=== PATIENT | male | born 1940 | race Caucasian/White ===

== ENCOUNTER 2024-08-17 14:59 | Inpatient (IN) | payer MEDICARE, OTHER ==
[2024-08-17] MEDS: HEPARIN SOD,PORK IN 0.45% NACL 25,000 UNIT in 0.45% NACL 1 250ML.BAG IV SCH (15:33)
--- NOTE | 2024-08-17 15:55 | ED ---
General Adult HPI - General Chief complaint: Chest Pain Stated complaint: chest pain Time Seen by Provider: 08/17/24 15:01 Source: patient Mode of arrival: EMS Limitations: no limitations - History of Present Illness Initial comments: Dictation was produced using [employer] dictation software. please excuse any grammatical, word or spelling errors. Chief Complaint: 83-year-old male with no significant past medical history presents to the ER for chest pain History of Present Illness: Patient is 83-year-old male denies any coronary or cardiac history. Initially presented to outside emergency department for chest pain suspicious for ACS. Transferring facility perform extensive workup including troponin, x-ray EKG. Unremarkable. Patient however did have some bradycardic episodes where his heart rate will drop into the 30s. Patient has been having chronic syncopal issues that was not allegedly secondary to ear issues. Patient denies any pain at the bedside. The ROS documented in this emergency department record has been reviewed and confirmed by me. Those systems with pertinent positive or negative responses have been documented in the HPI. All other systems are other negative and/or noncontributory. - Related Data Home Medications Medication Instructions Recorded Confirmed Lansoprazole [Prevacid] 30 mg PO BID 05/23/16 05/23/16 Levothyroxine Sodium [Synthroid] 25 mcg PO QAM 05/23/16 05/23/16 Melatonin 5 mg PO HS PRN 05/23/16 05/23/16 clonazePAM [KlonoPIN] 1 mg PO HS 05/23/16 05/23/16 hydrOXYzine HCL [Atarax] 25 mg PO HS 05/23/16 05/23/16 Allergies Allergy/AdvReac Type Severity Reaction Status Date / Time amoxicillin trihydrate Allergy Diarrhea Verified 05/23/16 15:17 [From Augmentin] metoclopramide HCl Allergy AGITATION,A Verified 05/23/16 15:17 [From Reglan] NXIETY potassium clavulanate Allergy Diarrhea Verified 05/23/16 15:17 [From Augmentin] Review of Systems ROS Statement: Those systems with pertinent positive or pertinent negative responses have been documented in the HPI. ROS Other: All systems not noted in ROS Statement are negative. Past Medical History Past Medical History: GERD/Reflux Additional Past Medical History / Comment(s): VERTIGO. RESTLESS LEG. TESTED POSITIVE FOR HEPATITIS MANY YEARS AGO, NOT SURE WHAT TYPE. History of Any Multi-Drug Resistant Organisms: None Reported Past Surgical History: Back Surgery Additional Past Surgical History / Comment(s): FUSION OF L5-S1. LEFT PART KNEE. PAIN PROCEDURES AT OA. Past Anesthesia/Blood Transfusion Reactions: Motion Sickness, Postoperative Nausea & Vomiting (PONV) Past Psychological History: No Psychological Hx Reported Past Alcohol Use History: Rare Past Drug Use History: None Reported General Exam - General Exam Comments Initial Comments: PHYSICAL EXAM: General Impression: Alert and oriented x3, not in acute distress HEENT: Normocephalic atraumatic, extra-ocular movements intact, pupils equal and reactive to light bilaterally, mucous membranes moist. Cardiovascular: Heart regular rate and rhythm Chest: Able to complete full sentences, no retractions, no tachypnea Abdomen: abdomen soft, non-tender, non-distended, no organomegaly Musculoskeletal: Pulses present and equal in all extremities, no peripheral edema Motor: no focal deficits noted Neurological: CN II-XII grossly intact, no focal motor or sensory deficits noted Skin: Intact with no visualized rashes Psych: Normal affect and mood Limitations: no limitations Course Vital Signs 08/17/24 15:00 Temperature 97.4 F L Pulse Rate 37 L Respiratory 16 Rate Blood Pressure 178/75 O2 Sat by Pulse 100 Oximetry EKG Findings - EKG Comments: EKG Findings:: My EKG interpretation: Ventricular rate 36, sinus bradycardia,. 09/23/2018, QRS 87, QTc 378. No OK prolongation, no QTC prolongation, no ST or T- wave changes noted. No evidence of heart block. Overall this EKG is nonspecific Medical Decision Making - Medical Decision Making Was pt. sent in by a medical professional or institution (, PA, DEPUTY SHERIFF CHIEF, urgent care, hospital, or half-way...) When possible be specific @ -Outside emergency room Did you speak to anyone other than the patient for history (EMS, parent, family, police, friend...)? What history was obtained from this source @ -Spoke with transferring physician Did you review nursing and triage notes (agree or disagree)? Why? @ -I reviewed and agree with nursing and triage notes Were old charts reviewed (outside hosp., previous admission, EMS record, old EKG, old radiological studies, urgent care reports/EKG's, half-way records)? Report findings @ -Transferring documentations reviewed Differential Diagnosis (chest pain, altered mental status, abdominal pain women, abdominal pain men, vaginal bleeding, musculoskeletal, weakness, fever, dyspnea, syncope, headache, dizziness, GI bleed, back pain, seizure, CVA, palpatations, mental health)? @ -Differential Chest Pain: Stable Angina, Unstable Angina, STEMI, NSTEMI Aortic Dissection, Pneumothorax, Musculoskeletal, Esophageal Spasm GERD, Cholecystitis, Pancreatitis, Zoster, this is not meant to be an all-inclusive list. EKG interpreted by me (3pts min.). @ -See above X-rays interpreted by me (1pt min.). @ -None done CT interpreted by me (1pt min.). @ -None done U/S interpreted by me (1pt. min.). @ -None done What testing was considered but not performed or refused? (CT, X-rays, U/S, labs)? Why? @ -None What meds were considered but not given or refused? Why? @ -None Was smoking cessation discussed for >3mins.? @ -No Were there social determinants of health that impacted care today? How? (Homelessness, low income, unemployed, alcoholism, drug addiction, transportation, low edu. Level, literacy, decrease access to med. care, group home, rehab)? @ -No Was there de-escalation of care discussed even if they declined (Discuss DNR or withdrawal of care, Hospice)? DNR status @ -No What co-morbidities impacted this encounter? (DM, HTN, Smoking, COPD, CAD, Cancer, CVA, ARF, Chemo, Hep., AIDS, mental health diagnosis, sleep apnea, morbid obesity)? @ -None Was patient admitted / discharged? Hospital course, mention meds given and route, prescriptions, significant lab abnormalities, going to OR and other pertinent info. @ -83-year-old male presents to the emergency department as a ACS transfer from outside hospital. Vital signs shows bradycardia. Patient pain-free at the bedside upon arrival. Patient will be admitted consultation cardiology. Did you discuss the management of the patient with other professionals (professionals i.e. , PA, DEPUTY SHERIFF CHIEF, lab, RT, psych nurse, executive secretary social welfare, soil science professor, teacher, precinct commanding officer, manager rn case)? Give summary @ -Case discussed with hospitalist for admission Was critical care preformed (if so, how long)? @ -No Undiagnosed new problem with uncertain prognosis? @ -No Drug Therapy requiring intensive monitoring for toxicity (Heparin, Nitro, Insulin, Cardizem)? @ -No Were any procedures done? @ -No Diagnosis/symptom? Acute, or Chronic, or Acute on Chronic? Uncomplicated (without systemic symptoms) or Complicated (systemic symptoms)? @ -Acute coronary syndrome, bradycardia Side effects of treatment? @ -No Exacerbation, Progression, or Severe Exacerbation? @ -No Poses a threat to life or bodily function? How? (Chest pain, [place], [place], pneumonia, PE, COPD, DKA, ARF, appy, cholecystitis, CVA, Diverticulitis, Homicidal, Suicidal, threat to staff... and all critical care pts) @ -yes - Lab Data Lab Results 08/17/24 Range/Units 15:20 Troponin I <0.012 (0.000-0.034) ng/mL Disposition Clinical Impression: ACS (acute coronary syndrome) Disposition: ADMITTED IP TO THIS [facility] Condition: Fair Referrals: Christa Cartagena MD [Primary Care Provider] - 1-2 days Decision Time: 15:55
[2024-08-17] MEDS ORDERED: NITROGLYCERIN SL TABS 0.4 MG TAB SUBLINGUAL PRN (16:15)
[2024-08-17] MEDS: ATROPINE SULFATE 0.1 MG/ML 10ML SYRINGE IV STA (16:45)
[2024-08-17] MEDS ORDERED: hydrOXYzine HCL 25 MG TAB PO PRN (18:15)
[2024-08-17] MEDS ORDERED: ARTIFICIAL TEARS-HYPROMELLOSE DROPS 15 ML BTL BOTH EYES PRN (18:15)
[2024-08-17 19:55] LABS: Basophils # (A) 0.1 k/uL (0-0.2); Basophils % (A) 1 %; Eosinophils # (A) 0.1 k/uL (0-0.7); Eosinophils % (A) 1 %; HCT 37.2 % (39.0-53.0); HGB 12.4 gm/dL (13.0-17.5); Lymphocytes # (A) 1.5 k/uL (1.0-4.8); Lymphocytes % (A) 33 %; MCH 33.5 pg (25.0-35.0); MCHC 33.5 g/dL (31.0-37.0); MCV 100.1 fL (80.0-100.0); Macrocytosis Slight; Mean Platelet Volume 7.3; Monocytes # (A) 0.2 k/uL (0-1.0); Monocytes % (A) 5 %; Neutrophils # (A) 2.6 k/uL (1.3-7.7); Neutrophils % (A) 58 %; Platelet Count 220 k/uL (150-450); RBC 3.71 m/uL (4.30-5.90); WBC 4.4 k/uL (3.8-10.6)
[2024-08-17 20:02] LABS: ALT 25 U/L (4-49); AST 32 U/L (17-59); African American GFR (CKD) >90 (>60 ml/min/1.73 sqM); Albumin 4.4 g/dL (3.5-5.0); Alkaline Phosphatase 79 U/L (38-126); Anion Gap 5 mmol/L; Blood Urea Nitrogen 12 mg/dL (9-20); Carbon Dioxide 26 mmol/L (22-30); Chloride 100 mmol/L (98-107); Glucose 145 mg/dL (74-99); Non-African American GFR(CKD) 82 (>60 ml/min/1.73 sqM); Sodium 131 mmol/L (137-145); Total Protein 7.1 g/dL (6.3-8.2)
[2024-08-17] MEDS: hydrOXYzine HCL 25 MG TAB PO SCH (21:33)
[2024-08-17] MEDS: clonazePAM 0.5 MG TAB PO SCH (21:34)
[2024-08-17] MEDS: MELATONIN 5 MG TABLET PO SCH (21:34)
[2024-08-17] MEDS: cycloSPORINE 0.05% OPHTH 0.4 ML DROPERETTE BOTH EYES SCH (21:35)
[2024-08-18] MEDS: HEPARIN SODIUM 1,000 UN/ML (10ML VL) IV PRN (00:11)
[2024-08-18] MEDS: LEVOTHYROXINE 25 MCG TAB PO SCH (06:13)
[2024-08-18] MEDS: PANTOPRAZOLE 40 MG TABLET PO SCH (06:13)
[2024-08-18] MEDS ORDERED: ASPIRIN 325 MG TAB PO SCH (09:00)
[2024-08-18] MEDS: ASPIRIN 81 MG PO SCH (11:53)
--- NOTE | 2024-08-18 12:58 | P.CRDCN ---
History of Present Illness History of present illness: HISTORY OF PRESENT ILLNESS: This is a 83-year-old male with a past medical history significant for hypothyroidism and Mnire's disease. Patient does not follow with a senior back end java developer. We have been asked to see the patient in consultation for chest pain. Patient examined at the bedside. Patient states yesterday he was sitting at his table when he began to have chest pain. However patient is pointing to his left outer aspect of his abdomen under his rib cage. He states it felt like a stabbing sensation and lasted for about 15 minutes. He also reports feeling dizzy at that time. He states that he crawled to the couch and then called a friend and went to the hospital for further evaluation. Additionally, patient states he has had a long standing history of Mnire's disease since being in the and goes to an [facility] in [place]. He states he has been having some episodes of dizziness when he bends over and then stands back up. Patient was found to be bradycardic with a heart in the 30s. He is not on any AV flavio blocking agents. He denies any known history of bradycardia. He states that he has had about 4 or 5 episodes of syncope over the past 10 years and the last one was about a year ago. The patient states that he is normally very active and walks 4 miles a day and was recently in [place] [employer]. The patient did get up and ambulate this morning in the hallways without any symptoms. Patient's heart rate was 60s70s with ambulation. The patient denies any known history of hypertension, hyperlipidemia, or diabetes. He is a non-smoker. DIAGNOSTICS: - EKG reveals sinus bradycardia with a heart rate of 36. First-degree AV block. - Laboratory data: WBC 4.4. Hemoglobin 12.4. Platelet count 220. Sodium 131. Potassium 4.0. BUN 12. Creatinine 0.83. Troponin negative x 3. TSH 3.270. - Current home cardiac medications include none - No previous echocardiogram, stress test, or cardiac catheterization available for review in EMR REVIEW OF SYSTEMS: At the time of my exam: CONSTITUTIONAL: Denies fever or chills. HEENT: Denies blurred vision, vision changes, or eye pain. Denies hemoptysis CARDIOVASCULAR: Denies chest pain. Denies orthopnea. Denies PND. Denies palpitations RESPIRATORY: Denies shortness of breath. GASTROINTESTINAL: Denies abdominal pain. Denies nausea or vomiting. HEMATOLOGIC: Denies bleeding disorders. GENITOURINARY: Denies any blood in urine. SKIN: Denies pruitis. Denies rash. PHYSICAL EXAM: VITAL SIGNS: Reviewed. GENERAL: Well-developed in no acute distress. HEENT: Head is normocephalic. Pupils are equal, round. Sclerae anicteric. Mucous membranes of the mouth are moist. Neck supple. No JVD or thyromegaly LUNGS: Respirations even and unlabored. Lungs essentially clear to auscultation bilaterally. HEART: Bradycardic. Regular rate and rhythm. S1 and S2 heard. ABDOMEN: Soft. Nondistended. Nontender. EXTREMITIES: Normal range of motion. No clubbing or cyanosis. Peripheral pulses intact. No lower extremity edema NEUROLOGIC: Awake and alert. Oriented x 3. ASSESSMENT: Chest pain, atypical, troponin negative x 3 Sinus bradycardia with appropriate increase in HR with ambulation, no evidence of chronotropic incompetence History of Mnire's disease Hypothyroidism PLAN: An acute coronary event has been ruled out Discontinue IV heparin Add aspirin 81 mg daily Obtain 2D echo to assess cardiac structure function Continue telemetry monitoring Recommend outpatient stress testing and outpatient event monitor Further recommendations pending patient course Nurse practitioner note has been reviewed by physician. Signing provider agrees with the documented findings, assessment, and plan of care documented by DEPUTY FIRE MARSHAL as a scribe. Past Medical History Past Medical History: GERD/Reflux, Prostate Disorder, Thyroid Disorder Additional Past Medical History / Comment(s): VERTIGO. RESTLESS LEG. TESTED POSITIVE FOR HEPATITIS MANY YEARS AGO, NOT SURE WHAT TYPE. Fibromyalgia. Polymyalgaia Rhumatica History of Any Multi-Drug Resistant Organisms: None Reported Past Surgical History: Back Surgery, Joint Replacement, Orthopedic Surgery, Prostate Surgery Additional Past Surgical History / Comment(s): FUSION OF L5-S1. LEFT Knee, right knee, left hip. PAIN PROCEDURES AT OA. Past Anesthesia/Blood Transfusion Reactions: Motion Sickness, Postoperative Nausea & Vomiting (PONV) Past Psychological History: No Psychological Hx Reported Smoking Status: Never smoker Past Alcohol Use History: Rare Past Drug Use History: None Reported Medications and Allergies Home Medications Medication Instructions Recorded Confirmed Type Lansoprazole [Prevacid] 30 mg PO DAILY 05/23/16 08/17/24 History Levothyroxine Sodium [Synthroid] 25 mcg PO DAILY 05/23/16 08/17/24 History hydrOXYzine HCL [Atarax] 25 mg PO HS 05/23/16 08/17/24 History Carboxymethylcellulose Sodium 1 drop BOTH EYES Q4H PRN 08/17/24 08/17/24 History [Thera Tears] Melatonin 10 mg PO HS 08/17/24 08/17/24 History Sennosides [Senokot] 8.6 mg PO DAILY PRN 08/17/24 08/17/24 History clonazePAM [KlonoPIN] 1.5 mg PO HS 08/17/24 08/17/24 History cycloSPORINE 1 drop BOTH EYES HS 08/17/24 08/17/24 History hydrOXYzine HCL [Atarax] 25 mg PO DAILY PRN 08/17/24 08/17/24 History tadalafiL 20 mg PO DAILY PRN 08/17/24 08/17/24 History Allergies Allergy/AdvReac Type Severity Reaction Status Date / Time amoxicillin trihydrate Allergy Diarrhea Verified 08/17/24 15:59 [From Augmentin] metoclopramide HCl Allergy AGITATION,A Verified 08/17/24 15:59 [From Reglan] NXIETY potassium clavulanate Allergy Diarrhea Verified 08/17/24 15:59 [From Augmentin] Physical Exam Vitals: Vital Signs Temp Pulse Pulse Pulse Resp BP BP 08/18/24 04:26 39 L 16 08/18/24 02:35 98.1 F 44 L 93 17 139/64 08/18/24 01:42 41 L 18 123/51 08/18/24 00:07 51 L 18 117/54 08/17/24 18:00 97.7 F 45 L 16 145/67 08/17/24 16:14 35 L 16 144/69 08/17/24 15:00 97.4 F L 37 L 16 178/75 BP Pulse Ox 08/18/24 04:26 08/18/24 02:35 155/54 98 08/18/24 01:42 98 08/18/24 00:07 08/17/24 18:00 99 08/17/24 16:14 99 08/17/24 15:00 100 Intake and Output 08/17/24 08/18/24 08/18/24 22:59 06:59 14:59 Intake Total 82.55 Balance 82.55 Intake: Intake, IV Titration 82.55 Amount Heparin Sod,Pork in 0.45% 82.55 NaCl 25,000 unit In 0.45 % NaCl 1 250ml.bag @ 12 UNITS/KG/HR 9.525 mls/hr IV .Q24H [facility] Rx#: [id number] Other: Voiding Method Toilet # Voids 1 Weight 79.379 kg 77.7 kg Results 08/17/24 18:48 08/17/24 18:48 Cardiac Enzymes 08/17/24 08/17/24 08/17/24 Range/Units 15:20 18:48 18:48 AST 32 (17-59) U/L Troponin I <0.012 0.013 (0.000-0.034) ng/mL 08/17/24 Range/Units 21:45 AST (17-59) U/L Troponin I <0.012 (0.000-0.034) ng/mL Coagulation 08/17/24 Range/Units 21:45 APTT 42.2 H (22.0-30.0) sec CBC 08/17/24 Range/Units 18:48 WBC 4.4 (3.8-10.6) k/uL RBC 3.71 L (4.30-5.90) m/uL Hgb 12.4 L (13.0-17.5) gm/dL Hct 37.2 L (39.0-53.0) % Plt Count 220 (150-450) k/uL Comprehensive Metabolic Panel 08/17/24 Range/Units 18:48 Sodium 131 L (137-145) mmol/L Potassium 4.0 (3.5-5.1) mmol/L Chloride 100 (98-107) mmol/L Carbon Dioxide 26 (22-30) mmol/L BUN 12 (9-20) mg/dL Creatinine 0.83 (0.66-1.25) mg/dL Glucose 145 H (74-99) mg/dL Calcium 9.0 (8.4-10.2) mg/dL AST 32 (17-59) U/L ALT 25 (4-49) U/L Alkaline Phosphatase 79 (38-126) U/L Total Protein 7.1 (6.3-8.2) g/dL Albumin 4.4 (3.5-5.0) g/dL Current Medications Generic Name Dose Route Start Last Admin Trade Name Freq PRN Reason Stop Dose Admin Artificial Tears 1 drops 08/17/24 18:15 Artificial Tears-Hypromellose Drops 15 Ml Btl BOTH EYES Q4H PRN Dry Eye(s) Aspirin 325 mg 08/18/24 09:00 Aspirin 325 Mg Tab PO DAILY [facility] Clonazepam 1.5 mg 08/17/24 21:00 08/17/24 21:34 Clonazepam 0.5 Mg Tab PO 1.5 mg HS [facility] Administration Cyclosporine 1 drops 08/17/24 21:00 08/17/24 21:35 Cyclosporine 0.05% Ophth 0.4 Ml Droperette BOTH EYES 1 drops HS [facility]AB Administration Heparin Sodium (Porcine) 0 unit 08/17/24 15:08 08/18/24 00:11 Heparin Sodium 1,000 Un/Ml (10ml Vl) IV 1,984.475 unit PER PROTOCOL PRN Administration Low PTT Protocol Hydroxyzine HCl 25 mg 08/17/24 18:15 Hydroxyzine Hcl 25 Mg Tab PO DAILY PRN DIZZINESS Hydroxyzine HCl 25 mg 08/17/24 21:00 08/17/24 21:33 Hydroxyzine Hcl 25 Mg Tab PO 25 mg HS ZEINAB Administration Heparin Sodium/Sodium Chloride 250 mls @ 9.525 mls/hr 08/17/24 15:15 08/18/24 00:13 25,000 unit/ Sodium Chloride IV 14 units/kg/hr .Q24H [facility] 11.113 mls/hr Titration Protocol 12 UNITS/KG/HR Levothyroxine Sodium 25 mcg 08/18/24 06:30 08/18/24 06:13 Levothyroxine 25 Mcg Tab PO 25 mcg DAILY@0630 [facility] Administration Melatonin 10 mg 08/17/24 21:00 08/17/24 21:34 Melatonin 5 Mg Tablet PO 10 mg HS [facility]AB Administration Nitroglycerin 0.4 mg 08/17/24 16:15 Nitroglycerin Sl Tabs 0.4 Mg Tab SUBLINGUAL Q5M PRN Chest Pain Pantoprazole Sodium 40 mg 08/18/24 07:30 08/18/24 06:13 Pantoprazole 40 Mg Tablet PO 40 mg [id number] ZEINAB Administration Senna 8.6 mg 08/17/24 18:15 Sennosides 8.6 Mg Tab PO DAILY PRN Constipation Intake and Output 08/17/24 08/18/24 08/18/24 22:59 06:59 14:59 Intake Total 82.55 Balance 82.55 Intake: Intake, IV Titration 82.55 Amount Heparin Sod,Pork in 0.45% 82.55 NaCl 25,000 unit In 0.45 % NaCl 1 250ml.bag @ 12 UNITS/KG/HR 9.525 mls/hr IV .Q24H [facility] Rx#: [id number] Other: Voiding Method Toilet # Voids 1 Weight 79.379 kg 77.7 kg 08/17/24 18:48 08/17/24 18:48
--- NOTE | 2024-08-18 13:32 | P.HPIM ---
History of Present Illness This is a pleasant 83 years old male who presents initially because of left side chest pain He states that his chest pain happened in the left lower lateral chest that lasted about 10 to 15 minutes, it was 8/10 Currently his chest pain is 0/10. It was associated with some sweating, nausea and he felt he is going to pass out Other than that he denies any specific GI/ symptoms. No headache dizziness weakness numbness He complains from chronic ear problem with Mnire disease He denies smoking alcohol or illicit drugs He is afebrile, vital stable, blood pressure slightly elevated, currently better controlled Hemoglobin 12.4, rest of CBC, BMP, liver enzymes were unremarkable Troponin x 2 were negative less than 0.012 EKG showing sinus bradycardia at 36 on admission Review of Systems Review of systems CONSTITUTIONAL: No fever, no malaise, no fatigue. HEENT: No recent visual problems or hearing problems. Denied any sore throat. CARDIOVASCULAR: No orthopnea, PND, no palpitations, no syncope. PULMONARY: No shortness of breath, no cough, no hemoptysis. GASTROINTESTINAL: No diarrhea, no nausea, no vomiting, no abdominal pain. Normoactive bowel sounds. NEUROLOGICAL: No headaches, no weakness, no numbness. HEMATOLOGICAL: Denies any bleeding or petechiae. GENITOURINARY: Denies any burning micturition, frequency, or urgency. MUSCULOSKELETAL/RHEUMATOLOGICAL: Denies any joint pain, swelling, or any muscle pain. ENDOCRINE: Denies any polyuria or polydipsia. Past Medical History Past Medical History: GERD/Reflux, Prostate Disorder, Thyroid Disorder Additional Past Medical History / Comment(s): VERTIGO. RESTLESS LEG. TESTED POSITIVE FOR HEPATITIS MANY YEARS AGO, NOT SURE WHAT TYPE. Fibromyalgia. Polymyalgaia Rhumatica History of Any Multi-Drug Resistant Organisms: None Reported Past Surgical History: Back Surgery, Joint Replacement, Orthopedic Surgery, Pro state Surgery Additional Past Surgical History / Comment(s): FUSION OF L5-S1. LEFT Knee, right knee, left hip. PAIN PROCEDURES AT OA. Past Anesthesia/Blood Transfusion Reactions: Motion Sickness, Postoperative Nausea & Vomiting (PONV) Past Psychological History: No Psychological Hx Reported Smoking Status: Never smoker Past Alcohol Use History: Rare Past Drug Use History: None Reported Medications and Allergies Home Medications Medication Instructions Recorded Confirmed Type Lansoprazole [Prevacid] 30 mg PO DAILY 05/23/16 08/17/24 History Levothyroxine Sodium [Synthroid] 25 mcg PO DAILY 05/23/16 08/17/24 History hydrOXYzine HCL [Atarax] 25 mg PO HS 05/23/16 08/17/24 History Carboxymethylcellulose Sodium 1 drop BOTH EYES Q4H PRN 08/17/24 08/17/24 History [Thera Tears] Melatonin 10 mg PO HS 08/17/24 08/17/24 History Sennosides [Senokot] 8.6 mg PO DAILY PRN 08/17/24 08/17/24 History clonazePAM [KlonoPIN] 1.5 mg PO HS 08/17/24 08/17/24 History cycloSPORINE 1 drop BOTH EYES HS 08/17/24 08/17/24 History hydrOXYzine HCL [Atarax] 25 mg PO DAILY PRN 08/17/24 08/17/24 History tadalafiL 20 mg PO DAILY PRN 08/17/24 08/17/24 History Allergies Allergy/AdvReac Type Severity Reaction Status Date / Time amoxicillin trihydrate Allergy Diarrhea Verified 08/17/24 15:59 [From Augmentin] metoclopramide HCl Allergy AGITATION,A Verified 08/17/24 15:59 [From Reglan] NXIETY potassium clavulanate Allergy Diarrhea Verified 08/17/24 15:59 [From Augmentin] Physical Exam Vitals: Vital Signs Temp Pulse Pulse Pulse Resp BP BP 08/18/24 11:38 98.1 F 47 L 17 120/57 08/18/24 08:45 38 L 73 08/18/24 08:19 98 F 37 L 16 136/63 08/18/24 04:26 39 L 16 08/18/24 02:35 98.1 F 44 L 93 17 139/64 08/18/24 01:42 41 L 18 123/51 08/18/24 00:07 51 L 18 117/54 08/17/24 18:00 97.7 F 45 L 16 145/67 08/17/24 16:14 35 L 16 144/69 08/17/24 15:00 97.4 F L 37 L 16 178/75 BP Pulse Ox 08/18/24 11:38 99 08/18/24 08:45 08/18/24 08:19 98 08/18/24 04:26 08/18/24 02:35 155/54 98 08/18/24 01:42 98 08/18/24 00:07 08/17/24 18:00 99 08/17/24 16:14 99 08/17/24 15:00 100 Intake and Output 08/17/24 08/18/24 08/18/24 22:59 06:59 14:59 Intake Total 82.55 252.831 Balance 82.55 252.831 Intake: IV 40 Invasive Line 1 20 Invasive Line 2 20 Intake, IV Titration 82.55 94.831 Amount Heparin Sod,Pork in 0.45% 82.55 94.831 NaCl 25,000 unit In 0.45 % NaCl 1 250ml.bag @ 12 UNITS/KG/HR 9.525 mls/hr IV .Q24H [facility] Rx#: [id number] Oral 118 Other: Voiding Method Toilet Toilet # Voids 1 Weight 79.379 kg 77.7 kg GENERAL: The patient is alert and oriented x3, not in any acute distress. Well developed, well nourished. HEENT: Pupils are round and equally reacting to light. EOMI. No scleral icterus. No conjunctival pallor. Normocephalic, atraumatic. No pharyngeal erythema. No thyromegaly. CARDIOVASCULAR: S1 and S2 present. No murmurs, rubs, or gallops. PULMONARY: Chest is clear to auscultation, no wheezing , no crackles. ABDOMEN: Soft, nontender, nondistended, normoactive bowel sounds. No palpable or ganomegaly. MUSCULOSKELETAL: No joint swelling or deformity. EXTREMITIES: No cyanosis, clubbing, or pedal edema. NEUROLOGICAL: Gross neurological examination did not reveal any focal deficits. SKIN: No rashes. no petechiae. Results CBC & Chem 7: 08/17/24 18:48 08/17/24 18:48 Labs: Abnormal Lab Results - Last 24 Hours (Table) 08/17/24 08/17/24 08/17/24 Range/Units 18:48 18:48 21:45 RBC 3.71 L (4.30-5.90) m/uL Hgb 12.4 L (13.0-17.5) gm/dL Hct 37.2 L (39.0-53.0) % MCV 100.1 H (80.0-100.0) fL APTT 42.2 H (22.0-30.0) sec Sodium 131 L (137-145) mmol/L Glucose 145 H (74-99) mg/dL 08/18/24 Range/Units 08:10 RBC (4.30-5.90) m/uL Hgb (13.0-17.5) gm/dL Hct (39.0-53.0) % MCV (80.0-100.0) fL APTT 70.8 H (22.0-30.0) sec Sodium (137-145) mmol/L Glucose (74-99) mg/dL Thrombosis Risk Factor Assmnt - Choose All That Apply Any of the Below Risk Factors Present?: No Other Risk Factors: Yes Each Risk Factor Represents 3 Points: Age 75 years or older Thrombosis Risk Factor Assessment Total Risk Factor Score: 3 Thrombosis Risk Factor Assessment Level: Moderate Risk Assessment and Plan Assessment: Left lateral chest pain with presyncope, rule out cardiac causes Chronic mild anemia History of right ear Mnire disease Plan: Continue with aspirin Cardiology consult Check echocardiogram Monitor heart rate and blood pressure Labs and medication were reviewed.. Continue same treatment. Continue with symptomatic treatment. Resume home medication. Monitor labs and vitals. DVT and GI prophylaxis. Further recommendations as per clinical course of the patient DVT prophylaxis: Subcutaneous heparin GI Prophylaxis: Protonix Prognosis is guarded
[2024-08-18 13:58] LABS: Chol/HDL Ratio 3.95 Ratio; LDL Cholesterol,Calculated 99.3 mg/dL (0.0-131.0); VLDL Calculation 16.46 mg/dL (5.00-40.00)
[2024-08-18] MEDS: HEPARIN SODIUM,PORCINE 5,000 UNIT/ML 1 ML VIAL SQ SCH (21:15)
[2024-08-18] MEDS: SENNOSIDES 8.6 MG TAB PO PRN (21:18)
[2024-08-19 06:37] LABS: African American GFR (CKD) 87 (>60 ml/min/1.73 sqM); Anion Gap 5 mmol/L; Blood Urea Nitrogen 18 mg/dL (9-20); Calcium 8.8 mg/dL (8.4-10.2); Carbon Dioxide 24 mmol/L (22-30); Chloride 101 mmol/L (98-107); Glucose 123 mg/dL (74-99); Non-African American GFR(CKD) 76 (>60 ml/min/1.73 sqM); Potassium 3.9 mmol/L (3.5-5.1); Sodium 130 mmol/L (137-145)
[2024-08-19 11:04] VITALS: TEMP 97.6
--- NOTE | 2024-08-19 13:39 | P.PN ---
Subjective HISTORY OF PRESENT ILLNESS: This is a 83-year-old male with a past medical history significant for hypothyroidism and Mnire's disease. Patient does not follow with a appraisal analyst. We have been asked to see the patient in consultation for chest pain. Patient examined at the bedside. Patient states yesterday he was sitting at his table when he began to have chest pain. However patient is pointing to his left outer aspect of his abdomen under his rib cage. He states it felt like a stabbing sensation and lasted for about 15 minutes. He also reports feeling dizzy at that time. He states that he crawled to the couch and then called a fr iend and went to the hospital for further evaluation. Additionally, patient states he has had a long standing history of Mnire's disease since being in the and goes to [facility] in [place]. He states he has been having some episodes of dizziness when he bends over and then stands back up. Patient was found to be bradycardic with a heart in the 30s. He is not on any AV flavio blocking agents. He denies any known history of bradycardia. He states that he has had about 4 or 5 episodes of syncope over the past 10 years and the last one was about a year ago. The patient states that he is normally very active and walks 4 miles a day and was recently in [place] [employer]. The patient did get up and ambulate this morning in the hallways without any symptoms. Patient's heart rate was 60s70s with ambulation. The patient denies any known history of hypertension, hyperlipidemia, or diabetes. He is a non- smoker. DIAGNOSTICS: - EKG reveals sinus bradycardia with a heart rate of 36. First-degree AV block. - Laboratory data: WBC 4.4. Hemoglobin 12.4. Platelet count 220. Sodium 131. Potassium 4.0. BUN 12. Creatinine 0.83. Troponin negative x 3. TSH 3.270. - Current home cardiac medications include none - No previous echocardiogram, stress test, or cardiac catheterization available for review in EMR 08/19/2024 Patient examined this morning at the bedside. Patient denies chest pain or pressure. He denies shortness of breath. Telemetry reveals sinus bradycardia. 2D echo remains pending. PHYSICAL EXAM: VITAL SIGNS: Reviewed. GENERAL: Well-developed in no acute distress. HEENT: Head is normocephalic. Pupils are equal, round. Sclerae anicteric. Mucous membranes of the mouth are moist. Neck supple. No JVD or thyromegaly LUNGS: Respirations even and unlabored. Lungs essentially clear to auscultation bilaterally. HEART: Bradycardic. Regular rate and rhythm. S1 and S2 heard. ABDOMEN: Soft. Nondistended. Nontender. EXTREMITIES: Normal range of motion. No clubbing or cyanosis. Peripheral pulses intact. No lower extremity edema NEUROLOGIC: Awake and alert. Oriented x 3. ASSESSMENT: Chest pain, atypical, troponin negative x 3 Sinus bradycardia with appropriate increase in HR with ambulation, no evidence of chronotropic incompetence History of Mnire's disease Hypothyroidism PLAN: An acute coronary event has been ruled out 2D echo remains pending. Await results. Initially plan was for outpatient stress testing. However patient states he is leaving next week for [place] for 3 months. Patient will undergo stress echocardiogram today. If negative, he may be discharged home from a cardiac standpoint Nurse practitioner note has been reviewed by physician. Signing provider agrees with the documented findings, assessment, and plan of care documented by SOLAR INSTALLATION FOREMAN as a scribe. Objective - Vital Signs Vital signs: Vital Signs Temp 97.6 F 08/19/24 08:45 Pulse 45 L 08/19/24 08:45 Resp 18 08/19/24 08:45 BP 131/59 08/19/24 08:45 Pulse Ox 100 08/19/24 08:45 FiO2 Intake & Output 08/18/24 08/19/24 08/19/24 18:59 06:59 18:59 Intake Total 370.831 640 240 Balance 370.831 640 240 Weight 78.6 kg Intake: IV 40 40 Invasive Line 1 20 20 Invasive Line 2 20 20 Intake, IV Titration 94.831 Amount Heparin Sod,Pork in 0.45% 94.831 NaCl 25,000 unit In 0.45 % NaCl 1 250ml.bag @ 12 UNITS/KG/HR 9.525 mls/hr IV .Q24H ZEINAB Rx#: [id number] Oral 236 600 240 Other: Voiding Method Toilet Toilet Toilet # Voids 2 3 - Labs CBC & Chem 7: 08/17/24 18:48 08/19/24 05:39 Labs: Abnormal Lab Results - Last 24 Hours (Table) 08/18/24 08/19/24 Range/Units 08:10 05:39 Sodium 130 L (137-145) mmol/L Glucose 123 H (74-99) mg/dL HDL Cholesterol 39.20 L (40.00-60.00) mg/dL
--- NOTE | 2024-08-19 15:17 | CA ---
Stress Echo Report Yuval Rios Age: 83 Gender: M : 1940 Exam Date: 08/19/2024 11:25 Exam Location: [facility] Ht (in): 68 Wt (lb): 173 Ordering Physician: Juany Rosen Referring Physician: [id number] Mining Analyst: Arina Sepulveda RDCS Technologist Procedure CPT: Indication: CP ICD-9 Codes: Rhythm: Patient History: CHEST PAIN, DIFFICULTY IN BREATHING, PALPITATIONS Cardiac Medications: Medications in past 24 hours: Contrast: Stress Results Protocol: Elmer Total dose(mL): Exercise Duration (min:sec): 7:[address] Depression (mm): Angina Score: Bianchi Score: METS: 9.1 Resting HR: 52 Resting BP: 170 / 70 Peak HR: 125 Peak BP: 212 / 50 Max Predicted HR: 138 91 % Max Predicted HR Target HR: 117 Double Product: [id number] Stress Summary: The patient's target heart rate was achieved BP Response: Reason for Termination: MAX EXERTION/TARGET HR Cardiac Symptoms: NO SYMPTOMS ECG Analysis Resting ECG: Normal sinus rhythm, Resting ST/T wave changes Stress ECG: No abnormal ST/T wave changes with exercise Arrhythmia: None Echo Analysis Resting Echo: Normal resting echocardiogram. Peak Echo Analysis: Normal wall thickening and motion MEASUREMENTS (Male/Female) Normal Values CONCLUSIONS 1. Good exercise tolerance with nondiagnostic electrocardiographic stress test. 2. Normal stress echocardiogram with no evidence of stress- induced ischemia Dr. Francisco Jones MD (Electronically Signed) Final Date: 19 August 2024 15:16
--- NOTE | 2024-08-19 15:20 | CA ---
Transthoracic Echo Report Name: Yuval Rios Age: 83 Gender: M : 1940 Exam Date: 08/19/2024 08:58 Exam Location: [facility] Ht (in): 68 Wt (lb): 171 Ordering Physician: Juany Rosen Attending/Referring Phys: [id number], Silas Senior Clinical Research Scientist Na Robb RDCS Procedure CPT: Indications: LV function, chest pain Cardiac Hx: Technical Quality: Good Contrast 1: Total Dose (mL): Contrast 2: Total Dose (mL): MEASUREMENTS (Male / Female) Normal Values 2D ECHO LV Diastolic Diameter PLAX 4.5 cm 4.2 - 5.9 / 3.9 - 5.3 cm LV Systolic Diameter PLAX 3.0 cm IVS Diastolic Thickness 1.4 cm 0.6 - 1.0 / 0.6 - 0.9 cm LVPW Diastolic Thickness 1.3 cm 0.6 - 1.0 / 0.6 - 0.9 cm LV Relative Wall Thickness 0.6 RV Internal Dim ED PLAX 4.0 cm LA Systolic Diameter LX 4.2 cm 3.0 - 4.0 / 2.7 - 3.8 cm LV Diastolic Volume MOD 4C 149.0 cm??? LV Systolic Volume MOD 4C 64.7 cm??? LV Ejection Fraction MOD 4C 56.6 % LV Cardiac Index MOD 4C 2172.1 cm???/min???m??? LV Diastolic Length 4C 9.6 cm LV Systolic Length 4C 7.6 cm LV Diastolic Volume MOD 2C 152.4 cm??? LV Systolic Volume MOD 2C 70.2 cm??? LV Ejection Fraction MOD 2C 53.9 % LV Cardiac Index MOD 2C 2116.8 cm???/min???m??? LV Diastolic Length 2C 9.9 cm LV Systolic Length 2C 7.9 cm LA Volume 90.9 cm??? 18 - 58 / 22 - 52 cm??? LA Volume Index 46.8 cm???/m??? 16 - 28 cm???/m??? M-MODE Aortic Root Diameter MM 3.5 cm AV Cusp Separation MM 2.2 cm DOPPLER AV Peak Velocity 147.4 cm/s AV Peak Gradient 8.7 mmHg AI Peak Velocity 345.7 cm/s AI Peak Gradient 47.8 mmHg AI Pressure Half Time 965.9 ms MV Area PHT 2.4 cm??? Mitral E Point Velocity 92.3 cm/s Mitral A Point Velocity 100.4 cm/s Mitral E to A Ratio 0.9 MV Deceleration Time 315.9 ms TR Peak Velocity 280.3 cm/s TR Peak Gradient 31.4 mmHg Right Ventricular Systolic Press 36.0 mmHg PV Peak Velocity 205.5 cm/s PV Peak Gradient 16.9 mmHg PV Mean Velocity 131.8 cm/s PV Mean Gradient 8.0 mmHg PV Velocity Time Integral 52.9 cm PI Peak Gradient 10.7 mmHg FINDINGS Left Ventricle Left ventricular ejection fraction is estimated at 55-60 %. Left ventricular cavity size normal. Normal left ventricular systolic function with no obvious regional wall motion abnormalities. Mildly increased left ventricular wall thickness. Right Ventricle Severe right ventricular dilatation. Mild pulmonary hypertension. Right Atrium Normal right atrial size. No right atrial thrombus or mass seen. Left Atrium Mildly increased left atrial diameter. Severely increased left atrial volume. Mildly increased left atrial area. No left atrial thrombus or mass present. Mitral Valve Structurally normal mitral valve. Mild mitral regurgitation.mitral annular calcification. Aortic Valve No aortic regurgitation. Mild aortic regurgitation.aortic valve sclerosis. Tricuspid Valve Structurally normal tricuspid valve. No tricuspid stenosis, or prolapse.mild tricuspid regurgitation. Pulmonic Valve Structurally normal pulmonic valve. Trace to mild pulmonic regurgitation. Pericardium No pericardial or pleural effusion. Aorta Normal size aortic root and proximal ascending aorta. CONCLUSIONS 1. Normal left ventricular size and systolic function 2. Mild mitral, aortic and tricuspid regurgitation 3. Mild pulmonary hypertension Previewed by: Dr. Francisco Jones MD (Electronically Signed) Final Date: 19 August 2024 15:19
[2024-08-19 17:38] VITALS: RESP 16
[2024-08-19 17:40] VITALS: BP 136/65; PULSE 50
--- NOTE | 2024-08-19 20:50 | P.DS ---
Providers Date of admission: 08/17/24 16:18 Attending physician: Chacha Mayes Consults: 08/17/24 16:15 Consult Physician Urgent Consulting Provider: Francisco Jones Consult Reason/Comments: chest pain Do you want consulting provider notified?: Yes Primary care physician: Christa Cartagena MD Hospital Course: Diagnoses: Left lateral chest pain with presyncope,. Symptoms resolved upon discharge cardiac causes ruled out Chronic mild anemia History of right ear Mnire disease Hospital course: This is a pleasant 83 years old male who presents initially because of left side chest pain. His symptoms completely resolved prior to discharge it was associated with some sweating, nausea and he felt he is going to pass out. Patient evaluated by launch operator, patient underwent stress test today as stress echo exercise was negative, ejection fraction was normal at 55 to 60% I discussed the case with the launch operator who cleared the patient for discharge Patient was eager to go home today. No other new complaint and no more chest pain Problems and management plan were discussed with the patient and he verbalized understanding and acceptance Patient was found stable and can be discharged home in guarded prognosis however he needs follow-up as an outpatient. Patient was instructed to follow up with PCP Within one week and patient agrees Patient was instructed to follow-up with Dr. Jones launch operator in 1 week and he agrees Physical exam Gen: patient is a AAOx3, no distress CVS: S1-S2, RRR, no murmur Lungs: B/L CTA, no wheezing Abdomen: soft, no distention, no tenderness, positive bowel sounds Extremity: no leg edema or induration Time spent more than 35 minutes Patient Condition at Discharge: Fair Plan - Discharge Summary Discharge Rx Participant: No New Discharge Prescriptions: Continue hydrOXYzine HCL [Atarax] 25 mg PO HS Lansoprazole [Prevacid] 30 mg PO DAILY Levothyroxine Sodium [Synthroid] 25 mcg PO DAILY Carboxymethylcellulose Sodium [Thera Tears] 1 drop BOTH EYES Q4H PRN PRN Reason: Dry Eye(S) tadalafiL 20 mg PO DAILY PRN PRN Reason: E.D. Melatonin 10 mg PO HS Sennosides [Senokot] 8.6 mg PO DAILY PRN PRN Reason: Constipation hydrOXYzine HCL [Atarax] 25 mg PO DAILY PRN PRN Reason: DIZZINESS clonazePAM [KlonoPIN] 1.5 mg PO HS cycloSPORINE 1 drop BOTH EYES HS Discharge Medication List Lansoprazole [Prevacid] 30 mg PO DAILY 05/23/16 [History] Levothyroxine Sodium [Synthroid] 25 mcg PO DAILY 05/23/16 [History] hydrOXYzine HCL [Atarax] 25 mg PO HS 05/23/16 [History] Carboxymethylcellulose Sodium [Thera Tears] 1 drop BOTH EYES Q4H PRN 08/17/24 [History] Melatonin 10 mg PO HS 08/17/24 [History] Sennosides [Senokot] 8.6 mg PO DAILY PRN 08/17/24 [History] clonazePAM [KlonoPIN] 1.5 mg PO HS 08/17/24 [History] cycloSPORINE 1 drop BOTH EYES HS 08/17/24 [History] hydrOXYzine HCL [Atarax] 25 mg PO DAILY PRN 08/17/24 [History] tadalafiL 20 mg PO DAILY PRN 08/17/24 [History] Follow up Appointment(s)/Referral(s): Francisco Jones MD [STAFF PHYSICIAN] - 1 Week (Please call to schedule follow up appointment with your launch operator ) Christa Cartagena MD [Primary Care Provider] - 1-2 days (Please call to schedule follow up appointment with your medical doctor. ) Patient Instructions/Handouts: Angina (DC), Stress Echocardiogram (DC) Activity/Diet/Wound Care/Special Instructions: heart healthy diet activity is restricted till you see your doctor Discharge Disposition: HOME SELF-CARE
== END 2024-08-19 18:42 | disposition home or self-care (01) | DRG 313 ==
LOC: EC 14:59 → 3SCARD 16:18
PROVIDERS: ADMIT Hospitalist; ATTEND Hospitalist
DX: R07.89 Other chest pain (principal); R55 Syncope and collapse; E03.9 Hypothyroidism, unspecified; G25.81 Restless legs syndrome; R00.1 Bradycardia, unspecified; M79.7 Fibromyalgia; H81.09 Meniere's disease, unspecified ear; M35.3 Polymyalgia rheumatica; I44.0 Atrioventricular block, first degree; Z79.890 Hormone replacement therapy; Z79.899 Other long term (current) drug therapy
CPT/HCPCS: 36415; 80048; 80053; 80061; 84443; 84484; 85025; 85730; 93306; 93351; 96365; 96366; 96375; 99285; 99291